=== PATIENT | female | born 1940 | race Caucasian/White ===

== ENCOUNTER → 2016-10-01 | Outpatient (CLI) | payer OTHER, MEDICARE | LOC: MMPC 09:00 | DX: Z79.01 Long term (current) use of anticoagulants (principal); Z51.81 Encounter for therapeutic drug level monitoring; I48.91 Unspecified atrial fibrillation | CPT/HCPCS: 85610 ==

== ENCOUNTER → 2016-10-08 | Outpatient (CLI) | payer OTHER, MEDICARE | LOC: MMPC 11:11 | DX: E11.9 Type 2 diabetes mellitus without complications (principal); I10 Essential (primary) hypertension; E55.9 Vitamin D deficiency, unspecified; M81.0 Age-related osteoporosis without current pathological fracture; E78.5 Hyperlipidemia, unspecified; K21.9 Gastro-esophageal reflux disease without esophagitis; I25.10 Atherosclerotic heart disease of native coronary artery without angina pectoris; E03.9 Hypothyroidism, unspecified | CPT/HCPCS: 99213; G0463 ==

== ENCOUNTER → 2016-10-12 | Outpatient (CLI) | payer OTHER, MEDICARE | LOC: MMPC 09:00 | DX: Z79.01 Long term (current) use of anticoagulants (principal); Z51.81 Encounter for therapeutic drug level monitoring; I48.91 Unspecified atrial fibrillation | CPT/HCPCS: 85610 ==

== ENCOUNTER → 2016-10-19 | Outpatient (CLI) | payer OTHER, MEDICARE | LOC: MMPC 09:00 | DX: Z79.01 Long term (current) use of anticoagulants (principal); Z51.81 Encounter for therapeutic drug level monitoring; I48.91 Unspecified atrial fibrillation | CPT/HCPCS: 85610 ==

== ENCOUNTER → 2016-12-01 | Outpatient (CLI) | payer OTHER, MEDICARE ==
[2016-12-01 12:40] LABS: BUN/CREATININE RATIO 17.77 (6-20); CALCIUM 10.4 mg/dL (8.7-10.7); CREATININE 0.9 mg/dL (0.50-1.20); POTASSIUM 4.6 meq/L (3.8-5.2); TOTAL PROTEIN 7.7 g/dL (6.1-8.0)
[2016-12-01 12:42] LABS: HEMOGLOBIN A1C 6.25 % (4.2-6.0); MEAN BLOOD GLUCOSE (CALC) 122.125 mg/dL
== END ==
LOC: MOB LAB 10:12
DX: E11.9 Type 2 diabetes mellitus without complications (principal); E55.9 Vitamin D deficiency, unspecified; I10 Essential (primary) hypertension; E78.5 Hyperlipidemia, unspecified
CPT/HCPCS: 36415; 80053; 82306; 83036

== ENCOUNTER → 2016-12-10 | Outpatient (CLI) | payer OTHER, MEDICARE | LOC: MMPC 09:00 | DX: Z79.01 Long term (current) use of anticoagulants (principal); Z51.81 Encounter for therapeutic drug level monitoring; I48.91 Unspecified atrial fibrillation | CPT/HCPCS: 85610 ==

== ENCOUNTER → 2017-03-04 | Outpatient (CLI) | payer OTHER, MEDICARE | LOC: MMPC 11:11 | DX: E11.9 Type 2 diabetes mellitus without complications (principal); I10 Essential (primary) hypertension; E55.9 Vitamin D deficiency, unspecified; M81.0 Age-related osteoporosis without current pathological fracture; I49.9 Cardiac arrhythmia, unspecified; I25.10 Atherosclerotic heart disease of native coronary artery without angina pectoris; H02.403 Unspecified ptosis of bilateral eyelids; E03.9 Hypothyroidism, unspecified; E78.2 Mixed hyperlipidemia | CPT/HCPCS: 99213; G0463 ==

== ENCOUNTER → 2017-03-08 | Outpatient (CLI) | payer OTHER, MEDICARE ==
[2017-03-08 08:57] LABS: HEMOGLOBIN A1C 6.15 % (4.2-6.0)
[2017-03-08 09:02] LABS: BILIRUBIN,URINE NEGATIVE (NEG); COLOR,URINE YELLOW; GLUCOSE, URINE (UA) NEGATIVE (NEG); NITRATE,URINE NEGATIVE (NEG); OCCULT BLOOD,URINE NEGATIVE (NEG); PROTEIN,URINE NEGATIVE (NEG); UROBILINOGEN,URINE 0.2 mg/dL (0.2)
[2017-03-08 09:07] LABS: BUN/CREATININE RATIO 13.75 (6-20); CALCIUM 9.8 mg/dL (8.7-10.7); CHOL/HDL RATIO 4.4 RATIO (0-4.0); LDL CHOLESTEROL,CALCULATED 45.2 mg/dL; SERUM ALBUMIN 4.6 g/dL (3.5-4.8)
[2017-03-08 09:32] LABS: CLARITY,URINE STRAW (CLEAR); RBC,URINE 0-2 /hpf; WBC,URINE 0
[2017-03-08 09:43] LABS: CREATININE, URINE 15.1 MG/DL (15-500)
[2017-03-08 10:38] LABS: URINE SAMPLE TYPE CLEAN CATCH URINE
== END ==
LOC: LAB 08:24
DX: E11.9 Type 2 diabetes mellitus without complications (principal); E03.9 Hypothyroidism, unspecified; I10 Essential (primary) hypertension; E78.2 Mixed hyperlipidemia; K21.9 Gastro-esophageal reflux disease without esophagitis; M81.0 Age-related osteoporosis without current pathological fracture; E83.52 Hypercalcemia
CPT/HCPCS: 36415; 80053; 80061; 81001; 82043; 83036

== ENCOUNTER → 2017-05-01 | Outpatient (CLI) | payer OTHER, MEDICARE | LOC: MMPC 09:00 | DX: R21 Rash and other nonspecific skin eruption (principal) | CPT/HCPCS: 99212; G0463 ==